=== PATIENT | male | born 1980 | race Caucasian/White ===

== ENCOUNTER 2020-03-29 11:53 | Emergency (ER) | payer BC ==
[2020-03-29] MEDS ORDERED: DIPH/PERTUSS(ACELL)/TETANUS VAC/PF 0.5 ML SYR (>=10YO) IM ONE (13:46)
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
[2020-03-29 15:51] VITALS: BP 142/84
== END 2020-03-29 15:53 | disposition home or self-care (01) ==
LOC: ER 11:53
DX: S00.12XA Contusion of left eyelid and periocular area, initial encounter (principal); S20.212A Contusion of left front wall of thorax, initial encounter; S00.31XA Abrasion of nose, initial encounter; M54.2 Cervicalgia; R07.81 Pleurodynia; V86.36XA Unspecified occupant of dirt bike or motor/cross bike injured in traffic accident, initial encounter; J32.0 Chronic maxillary sinusitis; Z23 Encounter for immunization
CPT/HCPCS: 70450; 70486; 72125; 90471; 90715; 99284